=== PATIENT | female | born 1955 ===

== ENCOUNTER 2021-06-04 08:14 | Outpatient (CLI) | payer OTHER | END 2021-06-04 08:23 | disposition home or self-care (01) | LOC: SONOGRAMA 08:14 | DX: M75.101 Unspecified rotator cuff tear or rupture of right shoulder, not specified as traumatic (principal) ==

== ENCOUNTER 2024-01-18 08:06 | Outpatient (CLI) | payer OTHER | END 2024-01-18 08:13 | disposition home or self-care (01) | LOC: SONOGRAMA 08:06 | DX: M25.511 Pain in right shoulder (principal); S49.91XA Unspecified injury of right shoulder and upper arm, initial encounter ==